=== PATIENT | male | born 1950 | race Caucasian/White ===

== ENCOUNTER → 2024-06-15 | Outpatient (CLI) | payer OTHER, SELFPAY ==
--- NOTE | 2024-06-15 12:40 | XR_ITS ---
Examination: Bone densitometry Date and time of exam:June 15, 2024 1247 hours INDICATIONS: 74-year-old male with age related osteoporosis Technique: Lumbar spine and hip total bone mineralization values of an calculated. Peak reference and age match control results have been displayed. Findings: Lumbar spine total bone mineralization is0.889 gm/cm2. This is 1.8 standard deviations below peak reference. This is 0.8 standard deviations below age-matched controls. Hip total bone mineralization is 0.864 gm/cm2 This is 1.1 standard deviations below peak reference. This is 0.2 standard deviations below age-matched controls Impression: There is osteopenia based on lumbar spine measurements. There is osteopenia based on hip measurements
== END | disposition home or self-care (01) ==
PROVIDERS: Referring Provider Internal Medicine Pulmonary Disease; Visit Provider Internal Medicine Pulmonary Disease
DX: Z13.820 Encounter for screening for osteoporosis (principal); M85.89 Other specified disorders of bone density and structure, multiple sites
CPT/HCPCS: 77080